=== PATIENT | female | born 1985 | race Caucasian/White ===

== ENCOUNTER 2020-12-16 21:56 | Emergency (ER) | payer OTHER ==
[~2020-12-16] VITALS: Ht 165.1 cm; Wt 72.7 kg
--- NOTE | 2020-12-16 22:14 | PHYS DOC ---
Past History Past Medical History Seasonal allergies Past Surgical History: No Surgical History Smoking: Non-smoker Alcohol Use: Occasionally Drug Use: None Adult General Chief Complaint Chief Complaint: ABDOMINAL PAIN [facility] HPI This is a 35-year-old female with a history of seasonal allergies and on Zyrtec and no other abdominal issues presents to the emergency department with epigastric and right upper quadrant area pain. Sharp in nature 10 out of 10 started this morning. Patient then developed onset of nausea without any emesis. Pain over several hours got worse. Patient became extremely nauseous and lethargic. Patient decided to come to the ER for evaluation. In the emergency department, patient is writhing in pain. Had large amount of emesis during interview. Patient denies taking any analgesics. Denies any [id number] medication. Patient denies any fever, chills, hematemesis, hematochezia, or any urinary symptoms. Denies any sick contact or recent travel. Denies any unusual food intake. 2 days ago she did eat at the [employer]. Denies any history of gallbladder issues in the past. She does take control pill. No surgeries in the past. Does report diarrhea. Review of Systems Review of Systems Constitutional: Denies fever or chills [] Eyes: Denies change in visual acuity, redness, or eye pain [] HENT: Denies nasal congestion or sore throat [] Respiratory: Denies cough or shortness of breath [] Cardiovascular: No additional information not addressed in HPI [] GI: Reports abdominal pain associated with severe nausea, denies any vomiting, bloody stools. reports diarrhea [] : Denies dysuria or hematuria [] Musculoskeletal: Denies back pain or joint pain [] Integument: Denies rash or skin lesions [] Neurologic: Denies headache, focal weakness or sensory changes [] Endocrine: Denies polyuria or polydipsia [] All other systems were reviewed and found to be within normal limits, except as documented in this note. Allergies Allergies Allergies Coded Allergies Type Severity Reaction Last Updated Verified No Known Drug Allergies 12/16/20 No Physical Exam Physical Exam Constitutional: Well developed, well nourished, no acute distress, non-toxic appearance. [] HENT: Normocephalic, atraumatic, bilateral external ears normal, oropharynx moist, no oral exudates, nose normal. [] Eyes: PERRLA, EOMI, conjunctiva normal, no discharge. [] Neck: Normal range of motion, no tenderness, supple, no stridor. [] Cardiovascular:Heart rate regular rhythm, no murmur [] Lungs & Thorax: Bilateral breath sounds clear to auscultation [] Abdomen: Hypoactive bowel sounds, soft, severe tenderness epigastric area, right upper quadrant, positive guarding. Positive Justin sign. Also suprapubic tenderness Skin: Warm, dry, no erythema, no rash. [] Back: No tenderness, no CVA tenderness. [] Extremities: No tenderness, no cyanosis, no clubbing, ROM intact, no edema. [] Neurologic: Alert and oriented X 3, normal motor function, normal sensory function, no focal deficits noted. [] Psychologic: Affect normal, judgement normal, mood normal. [] EKG EKG [] Radiology/Procedures Radiology/Procedures [] Heart Score C/O Chest Pain: No Risk Factors: Risk Factors: DM, Current or recent (<one month) smoker, HTN, HLP, family history of CAD, obesity. Risk Scores: Risk Factors: DM, Current or recent (<one month) smoker, HTN, HLP, family history of CAD, obesity. Course & Med Decision Making Course & Med Decision Making Pertinent Labs and Imaging studies reviewed. (See chart for details) Patient was examined and evaluated immediately upon arrival to the ER. Patient does not have any history of gallbladder or pancreatic issue. Patient is not a heavy drinker. She does report occasional particular on the weekend beer drinking. No abdominal surgery. Patient writhing in pain in the ER. Right upper quadrant and epigastric area. Patient had blood work done which revealed elevated lipase of 10,000, transaminitis, and hypokalemia. CT abdomen pelvis revealed fluid around the gallbladder, pancreas as well as duodenum. She also has ovarian enlargement bilaterally. Patient was given initially analgesics Dilaudid. This was repeated. She was started on IV fluids and antiemetics. She initially was hypertensive that was suspected from acute pain. However this improved to normal. [id number]: Spoke with Dr. Fuentes regarding patient condition including abdominal pain/epigastric pain with diagnosis of acute cholecystitis, acute pancreatitis and requiring admission. Patient has been accepted by him to [place]. Patient will be admitted to [place]. patient will be transferred via ambulance. Dragon Disclaimer Dragon Disclaimer This electronic medical record was generated, in whole or in part, using a voice recognition dictation system. Departure Departure: Impression: Primary Impression: Acute pancreatitis Additional Impressions: Abdominal pain Cholecystitis Leukocytosis Hypokalemia Transaminitis Hyperbilirubinemia Disposition: 02 SHORT [facility] Admitting Physician: Nick Fuentes Condition: IMPROVED Referrals: DAKOTAH TIMMONS MD (PCP) Problem Qualifiers VON COX MD Dec 16, 2020 22:14
[2020-12-16] MEDS ORDERED: ONDANSETRON PF 4 MG/2 ML VIAL. IVP ONE (22:30)
[2020-12-16] MEDS ORDERED: HYDROmorphone PF 1 MG/ML DISP.SYRIN ONE (22:34)
[2020-12-16 22:40] LABS: BASO % 0 % (0-3); EOS # 0.1 x10^3/uL (0.0-0.7); EOS % 1 % (0-3); HEMATOCRIT 40.4 % (36.0-47.0); LYMPH # 3.1 x10^3/uL (1.0-4.8); LYMPH % 22 % (24-48); MEAN CORPUSCULAR HEMOGLOBIN 32 pg (25-35); MEAN CORPUSCULAR HGB CONC 35 g/dL (31-37); MEAN CORPUSCULAR VOLUME 93 fL (79-100); MONO # 1.2 x10^3/uL (0.0-1.1); MONO % 8 % (0-9); NEUT % 69 % (31-73); PLATELET COUNT 227 x10^3/uL (140-400); RED BLOOD COUNT 4.36 x10^6/uL (3.50-5.40); RED CELL DISTRIBUTION WIDTH 13.8 % (11.5-14.5); WHITE BLOOD COUNT 14.5 x10^3/uL (4.0-11.0)
[2020-12-16] MEDS ORDERED: IV RINGERS SOLUTION,LACTATED 1,000 ML IV ONE (22:45)
[2020-12-16] MEDS ORDERED: IOHEXOL 300 MG/ML 75 ML VIAL. IV ONE (22:45)
[2020-12-16 22:46] LABS: CALCIUM 9.4 mg/dL (8.5-10.1); CREATININE 0.8 mg/dL (0.6-1.0); GFR 81.6; POTASSIUM 3.3 mmol/L (3.5-5.1)
[2020-12-16 22:51] LABS: ALBUMIN/GLOBULIN RATIO 1.3 (1.0-1.7); TOTAL BILIRUBIN 1.2 mg/dL (0.2-1.0); TOTAL PROTEIN 7.2 g/dL (6.4-8.2)
[2020-12-16] MEDS ORDERED: HYDROmorphone PF 1 MG/ML DISP.SYRIN IVP ONE ×2 (23:00)
[2020-12-16] MEDS ORDERED: CONTRAST GIVEN. MC PRN (23:00)
[2020-12-16 23:10] LABS: PREG TEST PT QUAL NEGATIVE (NEG)
--- NOTE | 2020-12-17 00:24 | RAD ---
CT abdomen and pelvis with contrast: Reason for examination: Abdominal pain. Helical images were obtained through the abdomen and pelvis with intravenous administration of 75 cc Omnipaque 300. Reconstruction was performed in sagittal and coronal planes. Exposure: One or more of the following individualized dose reduction techniques were utilized for thi s examination: 1. Automated exposure control 2. Adjustment of the mA and/or kV according to patient size 3. Use of iterative reconstruction technique. The lung bases are clear. The heart size is normal with no pericardial effusion. No abnormality seen at the liver, spleen or adrenal glands. Gallbladder shows no cholelithiasis. Ther e is however fluid present around the gallbladder, pancreas and second portion of the duodenum. This could reflect pancreatitis. The abdominal aorta and inferior vena cava show no focal abnormalities. T he kidneys show no renal masses, renal calculi, hydronephrosis or evidence of obstructive uropathy. N o abnormality seen at the appendix. Colon shows no diverticulosis, diverticulitis or colitis. The sma ll intestinal tract shows no abnormal dilatation or obstruction. There does appear to be some thicken ing of the wall of the duodenum which may reflect some duodenitis. No abnormality seen at the bladder or uterus. There is a 2.3 cm cystic-appearing structure at the lef t ovary. There is also a additional 1.8 cm cystic-appearing lesion in the left adnexa. No acute bony abnormalities are seen. IMPRESSION: Fluid around the gallbladder, pancreas and second portion of the duodenum with some duodenal wall thi ckening. This may reflect pancreatitis. Recommend clinical correlation and follow-up. 2.3 cm cystic lesion in the left ovary. 1.8 cm cystic lesion in the left adnexa. Electronically signed by: Lindy Mabry MD (12/17/2020 12:21 AM) [facility]
[2020-12-17] MEDS ORDERED: IV RINGERS SOLUTION,LACTATED 1,000 ML IV ONE (01:00)
[2020-12-17 01:47] VITALS: BP 132/94
[2020-12-17] MEDS ORDERED: ONDANSETRON PF 4 MG/2 ML VIAL. IVP ONE (03:00)
[2020-12-17] MEDS ORDERED: HYDROmorphone PF 1 MG/ML DISP.SYRIN IVP ONE (03:00)
== END 2020-12-17 02:48 | disposition short-term general hospital (02) ==
LOC: ER 21:56
DX: K85.90 Acute pancreatitis without necrosis or infection, unspecified (principal); K81.9 Cholecystitis, unspecified; D72.829 Elevated white blood cell count, unspecified; E87.6 Hypokalemia; R74.01 Elevation of levels of liver transaminase levels; E80.6 Other disorders of bilirubin metabolism; R11.2 Nausea with vomiting, unspecified
CPT/HCPCS: 36415; 74177; 80053; 83605; 83690; 84703; 85025; 86140; 96361; 96374; 96375; 96376; 99285; J1170; J2405; J3010; J7120; Q9967

== ENCOUNTER → 2021-03-12 | Outpatient (CLI) | payer OTHER ==
[~2021-03-12] MED LIST: IOHEXOL 240 MG/ML 50ML VIAL. PO ONE; IOHEXOL 300 MG/ML 75 ML VIAL. IV ONE
--- NOTE | 2021-03-12 14:58 | RAD ---
Study: CT abdomen/pelvis with intravenous contrast Indication: Weight loss. Ovarian cyst history. Cholecystectomy. Comparison: 12/16/2020 Technique: Helical CT imaging performed of the abdomen and pelvis after the intravenous administratio n of 75 cc contrast. Sagittal and coronal reformats were obtained. One or more of the following individualized dose reduction techniques were utilized for this examinat ion: 1. Automated exposure control 2. Adjustment of the mA and/or kV according to patient size 3. Use of iterative reconstruction technique. Findings: Chest: Millimetric right middle lobe and lingular nodules are unchanged. These do not meet criteria f or follow-up given size and stability. Unremarkable partially imaged mediastinal contents. Liver: Unremarkable. Gallbladder/Biliary Tree: Interval cholecystectomy. No fluid collection or other abnormality at the s urgical bed. Within normal limits biliary tree. Pancreas: Homogeneous parenchymal attenuation. Previously seen edema around the pancreas has resolved . No ductal dilatation. Spleen: Normal in size. Adrenal Glands: Unremarkable. Kidneys/Ureters/Bladder: Symmetric renal parenchymal enhancement. No hydronephrosis. Mild circumferen tial wall thickening of the urinary bladder measuring up to 7 mm. Reproductive Organs: Within normal limits uterus. Redemonstration of two ovarian cystic foci on the l eft. The larger cyst is unchanged in density at approximately 18 Hounsfield units. As measured on the coronal images the dominant cyst has slightly decreased in size now measuring 2.5 cm craniocaudal co mpared to 3.1 cm. On the axial plane the cyst appears slightly larger from the prior but this is rela perla to differences in slice angle. The smaller cyst measures simple density and is minimally larger a t 2.7 cm craniocaudal compared to 2.3 cm. No complex cyst or mass at the right adnexa. Colon: Orally administered contrast opacifies the colon. No significant segmental wall thickening or pericolonic inflammation. Rugal thickness is similar to the prior. Appendix: Normal. Small Bowel: Within normal limits for course and caliber. Stomach: Limited evaluation on account of underdistention. No readily apparent abnormality. Vasculature: Within normal limits. Lymph Nodes: No lymphadenopathy by size criteria. Peritoneum and Body Wall: No significant free pelvic fluid. Unremarkable body wall soft tissues. Bones: No acute or aggressive osseous process. A few small foci of sclerosis within the iliac bones a re unchanged. Miscellaneous: None. Impression: 1. No acute abnormality identified throughout the abdomen or pelvis. Inflammatory changes at the upp er abdomen have resolved since the comparison. The gallbladder has been removed and there is no unexp ected finding at the cholecystectomy bed. 2. Redemonstration of two left ovarian cystic foci. No interval change in density. The largest cyst has slightly decreased in size from 3.1 cm down to 2.5 cm and the smaller cyst is minimally larger bu t remains simple in density. Especially given patient age in concert with relative stability over thr ee months these are not concerning for malignancy. Optional ultrasound follow-up if there are risk fa ctors for ovarian cancer. 3. Mild circumferential wall thickening of the urinary bladder that is more noticeable from the prio r. If deemed clinically necessary consider correlation with urinalysis to exclude cystitis. Electronically signed by: SALUD RUSSO MD (03/12/2021 2:55 PM) [facility]
== END ==
LOC: CT 08:23
PROVIDERS: ATTEND Internal Medicine Gastroenterology
DX: R10.9 Unspecified abdominal pain (principal); R63.4 Abnormal weight loss; R91.8 Other nonspecific abnormal finding of lung field; Z90.49 Acquired absence of other specified parts of digestive tract
CPT/HCPCS: 74177; Q9966; Q9967

== ENCOUNTER → 2021-04-16 | Outpatient (CLI) | payer OTHER ==
--- NOTE | 2021-04-17 09:05 | RAD ---
DG SMALL BOWEL FOLLOW THROUGH Indication: Abdominal pain, cramping, constipation. Comparison: CT abdomen pelvis 03/12/2021. Technique: Preliminary sign painter helper film of the abdomen was obtained. Then following ingestion of oral bariu m, serial images of the abdomen were obtained to assess progress of contrast throughout the small bow el. No fluoroscopic images or fluoroscopy time was performed. There are 7 supine abdomen exposures. Findings: The sign painter helper image demonstrates a nonobstructive bowel gas pattern. Surgical clips in the right upper qu adrant. Clothing snap artifacts in the left pelvis. There are no distended small bowel loops. No strictures are seen. The small bowel fold pattern is unr emarkable. No luminal masses or filling defects identified. On the final radiograph contrast has zaman sited into the colon to the rectum. Transit time was normal at 80 minutes (normal <120 minutes.) IMPRESSION: 1. Unremarkable small bowel series. Normal transit time of 80 minutes. Electronically signed by: Edwin Galvez MD (04/17/2021 9:03 AM) [facility]
== END ==
LOC: RAD 08:07
PROVIDERS: ATTEND Internal Medicine Gastroenterology
DX: R10.9 Unspecified abdominal pain (principal); R19.7 Diarrhea, unspecified
CPT/HCPCS: 74250